=== PATIENT | female | born 1935 | race Caucasian/White ===

== ENCOUNTER 2016-12-23 12:53 | Inpatient (IN) | payer MEDICARE ==
[~2016-12-23 12:53] MED LIST: Sodium Chloride 0.9% 100 ML BAG ONE
[2016-12-23] MEDS ORDERED: Acetaminophen 325 MG TAB ONE (13:08)
--- NOTE | 2016-12-23 13:35 | RAD ---
SINGLE VIEW OF CHEST: Date: 12/23/16 COMPARISON: 08/24/15. HISTORY: Fever. FINDINGS: Single view of the chest shows a normal sized cardiomediastinal silhouette. There is no evidence of consolidation, mass, or pleural effusion. The bones are unremarkable. IMPRESSION: No evidence of acute cardiopulmonary disease. POS: [facility]
[2016-12-23 14:00] LABS: #Basophils 0.1 thou/uL (0.0-0.2); #Lymphocytes 1.8 thou/uL (1.20-3.40); #Neutrophils 13.8 thou/uL (1.40-6.50); %Basophils 0.5 % (0.0-1.0); %Lymphocytes 10.9 % (21.0-51.0); %Monocytes 5.7 % (0.0-10.0); %Neutrophils 82.8 % (42.0-75.0); Hemoglobin 10.3 g/dL (12.0-16.0); Mean Corpuscular HGB CONC 34.5 g/dL (32.0-36.0); Mean Corpuscular Hemoglobin 30.1 pg (27.0-31.0); Mean Corpuscular Volume 87.3 fl (81.0-99.0); Mean Platelet Volume 10.3 fL (7.4-10.4); Platelet Count 269 thou/uL (130-400); RBC Distribution Width 12.7 % (11.5-14.5); Red Blood Cell (RBC) Count 3.43 mill/uL (4.20-5.40); White Blood Cell (WBC) Count 16.6 thou/uL (4.8-10.8)
[2016-12-23 14:00] LABS: Blood, Urine Negative (Negative); Clarity Cloudy (Clear); Glucose, Urine (Dipstick) Negative (Negative); Nitrite Negative (Negative); Protein, Urine (Dipstick) 100 mg/dL (Neg-Trace); Specific Gravity, Urine 1.025 (1.005-1.030); Urobilinogen 0.2 mg/dL (0.2-1.0); pH, Urine 6.5 (5.0-9.0)
[2016-12-23 14:06] LABS: Anion Gap 17 mmol/L (10-20); BUN (Urea Nitrogen) 21 mg/dL (9.8-20.1); Calc. Creatinine Clearance 0 mL/min (70-130); Carbon Dioxide 22 mmol/L (23-31); Chloride 106 mmol/L (98-107); Estimated GFR-MDRD 56; Sodium 141 mmol/L (136-145)
[2016-12-23 14:07] LABS: ALT (SGPT) 11 U/L (8-55); AST (SGOT) 25 U/L (5-34); Albumin 3.5 g/dL (3.4-4.8); Alkaline Phosphatase 30 U/L (40-150); Bilirubin, Total 0.4 mg/dL (0.2-1.2); Calcium 8.9 mg/dL (7.8-10.44); Globulin 2.9 g/dL (2.4-3.5); Glucose 142 mg/dL (83-110); Protein, Total 6.4 g/dL (5.8-8.1)
[2016-12-23 14:09] LABS: CKMB 1.2 ng/mL (0-6.6); Troponin I 0.054 ng/mL (< 0.028)
[2016-12-23 14:11] LABS: Bilirubin Small (Negative); Icto Negative (Negative); Leukocyte Trace (Negative)
[2016-12-23 14:13] LABS: Bacteria/HPF 1+ HPF (None Seen); Crystals/HPF 1+ AMORPH URATES HPF (Negative); RBC/HPF 0-3 HPF (0-3); Renal Epithelial 0-3 HPF (0-3); Squamous Epithelial 0-3 HPF (0-3); Transitional Epithelial 0-3 HPF (0-3)
[2016-12-23] MEDS ORDERED: cefTRIAXone\\ROCEPHIN 1 GM VIAL ONE (14:39)
[2016-12-23] MEDS ORDERED: Ondansetron HCl/PF 4 MG/2 ML Vial SLOW IVP PRN (15:25)
[2016-12-23] MEDS ORDERED: HYDROcodone/Acetaminophen 5/325 mg Tablet PO PRN ×3 (15:25→21:26)
[2016-12-23] MEDS ORDERED: Sodium Chloride 0.9% 1,000 ML IV SCH (15:25)
[2016-12-23] MEDS ORDERED: Acetaminophen 325 MG TAB PO PRN (15:25)
[2016-12-23] MEDS ORDERED: Polyethylene Glycol 3350 17 GM Packet PO PRN (21:26)
[2016-12-23] MEDS ORDERED: Lorazepam 0.5 MG TAB PO SCH (21:45)
[2016-12-23] MEDS ORDERED: Gabapentin 300 MG CAP PO SCH (22:45)
[2016-12-23] MEDS: Amitriptyline HCl 25 MG TAB PO SCH ×3 (23:03→23:05)
[2016-12-24 07:39] LABS: Anion Gap 16 mmol/L (10-20); Calc. Creatinine Clearance 46 mL/min (70-130); Calcium 8.7 mg/dL (7.8-10.44); Carbon Dioxide 20 mmol/L (23-31); Chloride 110 mmol/L (98-107); Estimated GFR-MDRD 70; Glucose 118 mg/dL (83-110); Potassium 3.9 mmol/L (3.5-5.1); Sodium 142 mmol/L (136-145)
[2016-12-24 07:53] LABS: #Lymphocytes 1.8 thou/uL (1.20-3.40); #Monocytes 0.7 thou/uL (0.11-0.59); #Neutrophils 10.1 thou/uL (1.40-6.50); %Basophils 0.4 % (0.0-1.0); %Eosinophils 0.2 % (0.0-10.0); %Monocytes 5.7 % (0.0-10.0); %Neutrophils 79.8 % (42.0-75.0); Hemoglobin 9.8 g/dL (12.0-16.0); Mean Corpuscular HGB CONC 34.1 g/dL (32.0-36.0); Platelet Count 240 thou/uL (130-400); RBC Distribution Width 13.1 % (11.5-14.5); Red Blood Cell (RBC) Count 3.25 mill/uL (4.20-5.40); White Blood Cell (WBC) Count 12.7 thou/uL (4.8-10.8)
[2016-12-24] MEDS: Levothyroxine Sodium 25 MCG TAB PO SCH (08:44)
[2016-12-24] MEDS: Fenofibrate Nanocrystallized 145 MG TAB PO SCH (08:44)
[2016-12-24] MEDS: Clopidogrel Bisulfate 75 MG TAB PO SCH (08:44)
[2016-12-24] MEDS: Calcium Carbonate + Vit D 1 TAB PO SCH (08:44)
[2016-12-24] MEDS: Multivit, Therapeutic 1 TAB PO SCH (08:44)
[2016-12-24] MEDS: Ferrous Sulfate 325 MG TAB PO SCH (08:44)
[2016-12-24] MEDS: Gabapentin 300 MG CAP PO SCH ×3 (08:45→20:30)
[2016-12-24] MEDS: Aspirin 81 mg Enteric Coated Tablet PO SCH (08:45)
[2016-12-24 09:50] LABS: BUN (Urea Nitrogen) 15 mg/dL (9.8-20.1)
--- NOTE | 2016-12-24 14:28 | HP ---
DATE OF ADMISSION: 12/23/2016 ADMITTING PHYSICIAN: Ernst Fernández M.D. PRIMARY CARE PHYSICIAN: Ernst Fernández M.D. CHIEF COMPLAINT: Generalized weakness. HISTORY OF PRESENT ILLNESS: Ms. Mcdowell is an 81-year-old female with a medical history of hypertension, hypothyroidism, and dyslipidemia, chronic anemia, chronic pain syndrome due to low back pain on hydrocodone for this, depression and anxiety. The patient was brought to the emergency room on the by her due to a 2-day history of generalized weakness. The reports she became weak 2 days ago and she just says she has not been feeling good, but unable to describe in what way. Today, the patient reports she had been too weak to even get out of bed and has not eaten or taken any of her medications. Mr. Mcdowell, who is her primary caregiver says she just wants to stay in bed lately, he denies any other symptoms such as fever or URI symptoms. No new motor or sensory deficits. No recent fall, any trauma or injury. No new medications started. No recent travel. In the emergency room upon further examination, the patient was noted to have some pyuria documentation in her urine with no significant leukocytosis. Cardiac enzymes; troponin was intermediate and that was discussed with the patient and her who requested to be admitted to [facility] in [place] for inpatient management of a UTI and further monitoring of cardiac enzymes and possible physical therapy for generalized weakness. PAST MEDICAL HISTORY: Hypertension, osteoporosis, hypothyroidism, depression, history of previous TIA. Previous stroke without residual paralysis, history of left clavicle fracture status post fall, chronic pain syndrome, chronic anemia, osteoarthritis, osteopenia, iron deficiency anemia, chronic mild dry mouth syndrome, small hernia, history of bladder spasm. PAST SURGICAL HISTORY: Hysterectomy in 1994, tonsillectomy 1951, back surgery in 2008, right knee surgery, right foot surgery, colonoscopy [address] Nazario showed sigmoid diverticulosis and hemorrhoids. FAMILY HISTORY: Noncontributory. SOCIAL HISTORY: The patient is a nonsmoker, denies alcohol or illicit drug use. The patient lives with her who is her primary campus receptionist. She is ambulatory using a rolling walker, but has unsteady gait, continent of bladder and bowel. ALLERGIES: No known drug allergies. MEDICATIONS: Fenofibrate 145 daily, [place] 10/32 1-2 half to 1 tab as needed 3 times a day, gabapentin 300 three times a day, ferrous sulfate 325 one tab every day, aspirin 81 mg daily, Plavix 75 daily, Synthroid 25 half tab in the morning, lorazepam 0.5 1/2 tab to 1 tab at bedtime, amitriptyline 25 mg at bedtime, amlodipine 5 daily. REVIEW OF SYSTEMS: GENERAL: Denies fever or chills. Reports generalized weakness, fatigue. No significant weight loss, complains of loss of appetite. HEENT: No acute visual changes or hearing changes. No runny nose, cough or congestion. RESPIRATORY: No chronic cough, sputum production or pain with breathing, no wheezing. CARDIAC: No chest pain, palpitations, dyspnea on exertion. GASTROINTESTINAL: No nausea, no vomiting, abdominal pain or diarrhea. GENITOURINARY: No dysuria or hematuria, no frequency or urgency. MUSCULOSKELETAL: Chronic lower back pain on chronic narcotic use. SKIN: No rashes or lesions. NEUROLOGIC: Complains of generalized weakness. No headaches, seizures, mild tremor was noted. PHYSICAL EXAMINATION: VITAL SIGNS: Temperature 98.3, pulse 89, respirations 22, O2 sat 94% on room air, blood pressure 136/62. GENERAL APPEARANCE: The patient is alert, awake, oriented x3, in no distress. She is sitting comfortably in bed eating her breakfast, generally weak looking. HEENT: Normocephalic, atraumatic. Mucous membranes are intact, moist. Extraocular movements are intact. Pupils are equal, round and reactive to light. NECK: Supple, no JVD, no LAD, no bruit, no thyromegaly. CARDIOVASCULAR: S1, S2, normal rate and rhythm. LUNGS: Respirations clear to auscultation bilaterally. ABDOMEN: Flat, soft, positive bowel sounds, nontender, nondistended, no rebound , no guarding, no CVA tenderness. EXTREMITIES: No calf edema or erythema. SKIN: Dry, warm, no rashes or lesions, no jaundice. PSYCHIATRIC : Conversational, appropriate interaction, good eye contact. NEUROLOGIC: No focal deficits, spontaneous speech, unsteady gait. LABORATORY: WBC 16.6, hemoglobin 10.3, hematocrit 30.0, platelets 269. Sodium 141, potassium 4.0, chloride 106, carbon dioxide 22, BUN 21, creatinine 0.96, glucose is 142. Troponin 0.054. CK 1.2, alkaline phosphatase 30. ASSESSMENT: 1. Generalized weakness. 2. Urinary tract infection. 3. Deconditioning. 4. Chronic pain syndrome. 5. Unsteady gait. 6. Chronic anemia. 7. History of cerebrovascular accidents. 8. Dyslipidemia. 9. Hypothyroidism. 10. Depression with anxiety. PLAN: The patient will be admitted to the Med/Surg for inpatient management of her urinary tract infection. We will continue empiric IV antibiotic treatment with Levaquin as initiated from the ER pending cultures. We will continue volume hydration until oral intake is stabilized. We will continue home medications as modified. We will get PT, OT for evaluation and treatment of her gait strengthening and training. We will place the patient on DVT prophylaxis is with compression stockings and GI prophylaxis is with Protonix. CODE STATUS: The patient is a DNR, confirmed by spouse. DISPOSITION: Home versus placement per spouse. MTDD
[2016-12-24] MEDS: Lorazepam 0.5 MG TAB PO SCH (20:30)
[2016-12-24] MEDS: Amitriptyline HCl 25 MG TAB PO SCH (20:30)
[2016-12-24 22:14] VITALS: BMI 20.9
[2016-12-25] MEDS: Levothyroxine Sodium 25 MCG TAB PO SCH (05:47)
[2016-12-25] MEDS: Clopidogrel Bisulfate 75 MG TAB PO SCH (08:11)
[2016-12-25] MEDS: Fenofibrate Nanocrystallized 145 MG TAB PO SCH (08:11)
[2016-12-25] MEDS: Gabapentin 300 MG CAP PO SCH ×3 (08:11→20:27)
[2016-12-25] MEDS: Multivit, Therapeutic 1 TAB PO SCH (08:11)
[2016-12-25] MEDS: Calcium Carbonate + Vit D 1 TAB PO SCH (08:11)
[2016-12-25] MEDS: Ferrous Sulfate 325 MG TAB PO SCH (08:11)
[2016-12-25] MEDS: Aspirin 81 mg Enteric Coated Tablet PO SCH (08:11)
[2016-12-25] MEDS: Amitriptyline HCl 25 MG TAB PO SCH (20:27)
[2016-12-25] MEDS: Lorazepam 0.5 MG TAB PO SCH (20:28)
[2016-12-26 05:18] LABS: #Basophils 0.1 thou/uL (0.0-0.2); #Eosinphils 0.3 thou/uL (0.0-0.7); #Lymphocytes 2.7 thou/uL (1.20-3.40); #Monocytes 0.8 thou/uL (0.11-0.59); %Basophils 0.9 % (0.0-1.0); %Eosinophils 4.3 % (0.0-10.0); %Lymphocytes 39.1 % (21.0-51.0); %Monocytes 11.6 % (0.0-10.0); %Neutrophils 44.1 % (42.0-75.0); Hemoglobin 9.5 g/dL (12.0-16.0); Mean Corpuscular HGB CONC 33.4 g/dL (32.0-36.0); Mean Corpuscular Hemoglobin 29.5 pg (27.0-31.0); Mean Corpuscular Volume 88.3 fl (81.0-99.0); Mean Platelet Volume 9.9 fL (7.4-10.4); Platelet Count 263 thou/uL (130-400); RBC Distribution Width 12.8 % (11.5-14.5); Red Blood Cell (RBC) Count 3.23 mill/uL (4.20-5.40); White Blood Cell (WBC) Count 6.9 thou/uL (4.8-10.8)
[2016-12-26 05:20] LABS: Anion Gap 14 mmol/L (10-20); BUN (Urea Nitrogen) 14 mg/dL (9.8-20.1); Calc. Creatinine Clearance 44 mL/min (70-130); Calcium 8.5 mg/dL (7.8-10.44); Carbon Dioxide 23 mmol/L (23-31); Chloride 104 mmol/L (98-107); Estimated GFR-MDRD 69; Glucose 96 mg/dL (83-110); Potassium 4.3 mmol/L (3.5-5.1); Sodium 137 mmol/L (136-145)
[2016-12-26] MEDS: Levothyroxine Sodium 25 MCG TAB PO SCH (05:49)
[2016-12-26] MEDS: Aspirin 81 mg Enteric Coated Tablet PO SCH (08:48)
[2016-12-26] MEDS: Clopidogrel Bisulfate 75 MG TAB PO SCH (08:48)
[2016-12-26] MEDS: Calcium Carbonate + Vit D 1 TAB PO SCH (08:48)
[2016-12-26] MEDS: Multivit, Therapeutic 1 TAB PO SCH (08:49)
[2016-12-26] MEDS: Fenofibrate Nanocrystallized 145 MG TAB PO SCH (08:49)
[2016-12-26] MEDS: Gabapentin 300 MG CAP PO SCH ×3 (08:49→20:22)
[2016-12-26] MEDS: Ferrous Sulfate 325 MG TAB PO SCH (08:49)
[2016-12-26] MEDS: Amitriptyline HCl 25 MG TAB PO SCH (20:23)
[2016-12-26] MEDS: Lorazepam 0.5 MG TAB PO SCH (20:23)
[2016-12-27] MEDS: Levothyroxine Sodium 25 MCG TAB PO SCH (05:44)
[2016-12-27 07:51] VITALS: BP 152/67; TEMP 97.8
[2016-12-27] MEDS: Fenofibrate Nanocrystallized 145 MG TAB PO SCH (08:56)
[2016-12-27] MEDS: Aspirin 81 mg Enteric Coated Tablet PO SCH (08:56)
[2016-12-27] MEDS: Clopidogrel Bisulfate 75 MG TAB PO SCH (08:57)
[2016-12-27] MEDS: Multivit, Therapeutic 1 TAB PO SCH (08:57)
[2016-12-27] MEDS: Calcium Carbonate + Vit D 1 TAB PO SCH (08:57)
[2016-12-27] MEDS: Gabapentin 300 MG CAP PO SCH (08:57)
[2016-12-27] MEDS: Ferrous Sulfate 325 MG TAB PO SCH (08:57)
== END 2016-12-27 09:24 | disposition swing bed (61) | DRG 948 ==
LOC: MADERS 12:53 → MADMS 14:30
PROVIDERS: ADMIT Family Medicine; ATTEND Family Medicine
DX: R53.1 Weakness (principal); N39.0 Urinary tract infection, site not specified; D64.9 Anemia, unspecified; I10 Essential (primary) hypertension; G89.4 Chronic pain syndrome; R26.81 Unsteadiness on feet; Z86.73 Personal history of transient ischemic attack (TIA), and cerebral infarction without residual deficits; E78.5 Hyperlipidemia, unspecified; E03.9 Hypothyroidism, unspecified; F41.8 Other specified anxiety disorders; Z66 Do not resuscitate; M19.90 Unspecified osteoarthritis, unspecified site; M81.0 Age-related osteoporosis without current pathological fracture
CPT/HCPCS: 36415; 51702; 71010; 80048; 80053; 81003; 81015; 82553; 84484; 85025; 87040; 93005; 96361; 96374; A4216; A4353; G8978-GP-CK; G8979-GP-CI; J0696; J1956; J7050

== ENCOUNTER 2016-12-26 10:47 | Inpatient (IN) | payer MEDICARE ==
[2016-12-27] MEDS ORDERED: Ondansetron ODT 4 MG TAB PO PRN (12:33)
[2016-12-27] MEDS ORDERED: HYDROcodone/Acetaminophen 5/325 mg Tablet PO PRN (12:34)
[2016-12-27] MEDS: Gabapentin 300 MG CAP PO SCH ×2 (15:20→20:00)
[2016-12-27] MEDS: Amitriptyline HCl 25 MG TAB PO SCH (20:00)
[2016-12-27] MEDS: Lorazepam 0.5 MG TAB PO SCH (20:00)
[2016-12-28] MEDS: Levothyroxine Sodium 25 MCG TAB PO SCH (05:56)
[2016-12-28] MEDS: Fenofibrate Nanocrystallized 145 MG TAB PO SCH (10:01)
[2016-12-28] MEDS: Multivit, Therapeutic 1 TAB PO SCH (10:01)
[2016-12-28] MEDS: Clopidogrel Bisulfate 75 MG TAB PO SCH (10:01)
[2016-12-28] MEDS: Aspirin 81 mg Enteric Coated Tablet PO SCH (10:01)
[2016-12-28] MEDS: Calcium Carbonate + Vit D 1 TAB PO SCH (10:02)
[2016-12-28] MEDS: Ferrous Sulfate 325 MG TAB PO SCH (10:02)
[2016-12-28] MEDS: Gabapentin 300 MG CAP PO SCH ×3 (10:02→20:37)
[2016-12-28] MEDS: Polyethylene Glycol 3350 17 GM Packet PO PRN (19:26)
[2016-12-28] MEDS: Lorazepam 0.5 MG TAB PO SCH (20:37)
[2016-12-28] MEDS: Amitriptyline HCl 25 MG TAB PO SCH (20:37)
[2016-12-29] MEDS: Levothyroxine Sodium 25 MCG TAB PO SCH (05:42)
[2016-12-29] MEDS: Fenofibrate Nanocrystallized 145 MG TAB PO SCH (08:17)
[2016-12-29] MEDS: Multivit, Therapeutic 1 TAB PO SCH (08:17)
[2016-12-29] MEDS: Clopidogrel Bisulfate 75 MG TAB PO SCH (08:18)
[2016-12-29] MEDS: Gabapentin 300 MG CAP PO SCH ×3 (08:18→21:03)
[2016-12-29] MEDS: Calcium Carbonate + Vit D 1 TAB PO SCH (08:18)
[2016-12-29] MEDS: Aspirin 81 mg Enteric Coated Tablet PO SCH (08:18)
[2016-12-29] MEDS: Ferrous Sulfate 325 MG TAB PO SCH (08:18)
[2016-12-29] MEDS: Amitriptyline HCl 25 MG TAB PO SCH (21:03)
[2016-12-29] MEDS: Lorazepam 0.5 MG TAB PO SCH (21:03)
[2016-12-30] MEDS: Levothyroxine Sodium 25 MCG TAB PO SCH (05:45)
[2016-12-30] MEDS: Multivit, Therapeutic 1 TAB PO SCH (08:35)
[2016-12-30] MEDS: Aspirin 81 mg Enteric Coated Tablet PO SCH (08:36)
[2016-12-30] MEDS: Calcium Carbonate + Vit D 1 TAB PO SCH (08:36)
[2016-12-30] MEDS: Fenofibrate Nanocrystallized 145 MG TAB PO SCH (08:36)
[2016-12-30] MEDS: Ferrous Sulfate 325 MG TAB PO SCH (08:36)
[2016-12-30] MEDS: Clopidogrel Bisulfate 75 MG TAB PO SCH (08:36)
[2016-12-30] MEDS: Gabapentin 300 MG CAP PO SCH ×3 (08:37→20:20)
[2016-12-30] MEDS: Lorazepam 0.5 MG TAB PO SCH (20:20)
[2016-12-30] MEDS: Amitriptyline HCl 25 MG TAB PO SCH (20:20)
[2016-12-31] MEDS: Levothyroxine Sodium 25 MCG TAB PO SCH (05:17)
[2016-12-31] MEDS: Multivit, Therapeutic 1 TAB PO SCH (08:21)
[2016-12-31] MEDS: Aspirin 81 mg Enteric Coated Tablet PO SCH (08:21)
[2016-12-31] MEDS: Fenofibrate Nanocrystallized 145 MG TAB PO SCH (08:21)
[2016-12-31] MEDS: Calcium Carbonate + Vit D 1 TAB PO SCH (08:21)
[2016-12-31] MEDS: Clopidogrel Bisulfate 75 MG TAB PO SCH (08:21)
[2016-12-31] MEDS: Gabapentin 300 MG CAP PO SCH ×3 (08:22→20:46)
[2016-12-31] MEDS: Ferrous Sulfate 325 MG TAB PO SCH (08:22)
[2016-12-31] MEDS: Amitriptyline HCl 25 MG TAB PO SCH (20:46)
[2016-12-31] MEDS: Lorazepam 0.5 MG TAB PO SCH (20:46)
[2017-01-01] MEDS: Levothyroxine Sodium 25 MCG TAB PO SCH (05:45)
[2017-01-01] MEDS: Fenofibrate Nanocrystallized 145 MG TAB PO SCH (09:15)
[2017-01-01] MEDS: Clopidogrel Bisulfate 75 MG TAB PO SCH (09:15)
[2017-01-01] MEDS: Gabapentin 300 MG CAP PO SCH ×3 (09:15→20:23)
[2017-01-01] MEDS: Ferrous Sulfate 325 MG TAB PO SCH (09:16)
[2017-01-01] MEDS: Multivit, Therapeutic 1 TAB PO SCH (09:16)
[2017-01-01] MEDS: Aspirin 81 mg Enteric Coated Tablet PO SCH (09:16)
[2017-01-01] MEDS: Calcium Carbonate + Vit D 1 TAB PO SCH (09:16)
[2017-01-01] MEDS: Polyethylene Glycol 3350 17 GM Packet PO PRN (16:22)
[2017-01-01] MEDS: Lorazepam 0.5 MG TAB PO SCH (20:23)
[2017-01-01] MEDS: Amitriptyline HCl 25 MG TAB PO SCH (20:23)
[2017-01-02] MEDS: Levothyroxine Sodium 25 MCG TAB PO SCH (05:19)
[2017-01-02] MEDS: Gabapentin 300 MG CAP PO SCH ×3 (08:35→21:04)
[2017-01-02] MEDS: Clopidogrel Bisulfate 75 MG TAB PO SCH (08:35)
[2017-01-02] MEDS: Aspirin 81 mg Enteric Coated Tablet PO SCH (08:36)
[2017-01-02] MEDS: Multivit, Therapeutic 1 TAB PO SCH (08:36)
[2017-01-02] MEDS: Fenofibrate Nanocrystallized 145 MG TAB PO SCH (08:36)
[2017-01-02] MEDS: Ferrous Sulfate 325 MG TAB PO SCH (08:36)
[2017-01-02] MEDS: Calcium Carbonate + Vit D 1 TAB PO SCH (08:36)
[2017-01-02] MEDS: Amitriptyline HCl 25 MG TAB PO SCH (21:04)
[2017-01-02] MEDS: Lorazepam 0.5 MG TAB PO SCH (21:04)
[2017-01-03] MEDS: Levothyroxine Sodium 25 MCG TAB PO SCH (06:06)
[2017-01-03] MEDS: Multivit, Therapeutic 1 TAB PO SCH (08:42)
[2017-01-03] MEDS: Aspirin 81 mg Enteric Coated Tablet PO SCH (08:42)
[2017-01-03] MEDS: Ferrous Sulfate 325 MG TAB PO SCH (08:44)
[2017-01-03] MEDS: Fenofibrate Nanocrystallized 145 MG TAB PO SCH (08:44)
[2017-01-03] MEDS: Gabapentin 300 MG CAP PO SCH ×3 (08:44→21:19)
[2017-01-03] MEDS: Calcium Carbonate + Vit D 1 TAB PO SCH (08:44)
[2017-01-03] MEDS: Clopidogrel Bisulfate 75 MG TAB PO SCH (08:44)
[2017-01-03] MEDS: Lorazepam 0.5 MG TAB PO SCH (21:19)
[2017-01-03] MEDS: Amitriptyline HCl 25 MG TAB PO SCH (21:19)
[2017-01-04] MEDS: Levothyroxine Sodium 25 MCG TAB PO SCH (05:24)
[2017-01-04] MEDS: Fenofibrate Nanocrystallized 145 MG TAB PO SCH (08:59)
[2017-01-04] MEDS: Gabapentin 300 MG CAP PO SCH ×3 (08:59→20:45)
[2017-01-04] MEDS: Calcium Carbonate + Vit D 1 TAB PO SCH (08:59)
[2017-01-04] MEDS: Multivit, Therapeutic 1 TAB PO SCH (08:59)
[2017-01-04] MEDS: Aspirin 81 mg Enteric Coated Tablet PO SCH (08:59)
[2017-01-04] MEDS: Ferrous Sulfate 325 MG TAB PO SCH (08:59)
[2017-01-04] MEDS: Clopidogrel Bisulfate 75 MG TAB PO SCH (09:00)
[2017-01-04] MEDS: Lorazepam 0.5 MG TAB PO SCH (20:45)
[2017-01-04] MEDS: Amitriptyline HCl 25 MG TAB PO SCH (21:53)
[2017-01-05] MEDS: Levothyroxine Sodium 25 MCG TAB PO SCH (05:30)
[2017-01-05] MEDS: Calcium Carbonate + Vit D 1 TAB PO SCH (08:27)
[2017-01-05] MEDS: Aspirin 81 mg Enteric Coated Tablet PO SCH (08:27)
[2017-01-05] MEDS: Fenofibrate Nanocrystallized 145 MG TAB PO SCH (08:28)
[2017-01-05] MEDS: Ferrous Sulfate 325 MG TAB PO SCH (08:28)
[2017-01-05] MEDS: Clopidogrel Bisulfate 75 MG TAB PO SCH (08:28)
[2017-01-05] MEDS: Multivit, Therapeutic 1 TAB PO SCH (08:29)
[2017-01-05] MEDS: Gabapentin 300 MG CAP PO SCH ×3 (08:29→20:36)
[2017-01-05] MEDS: Amitriptyline HCl 25 MG TAB PO SCH (20:36)
[2017-01-05] MEDS: Lorazepam 0.5 MG TAB PO SCH (20:36)
[2017-01-06] MEDS: Levothyroxine Sodium 25 MCG TAB PO SCH (06:33)
[2017-01-06] MEDS: Clopidogrel Bisulfate 75 MG TAB PO SCH (08:32)
[2017-01-06] MEDS: Aspirin 81 mg Enteric Coated Tablet PO SCH (08:32)
[2017-01-06] MEDS: Ferrous Sulfate 325 MG TAB PO SCH (08:32)
[2017-01-06] MEDS: Calcium Carbonate + Vit D 1 TAB PO SCH (08:32)
[2017-01-06] MEDS: Gabapentin 300 MG CAP PO SCH ×3 (08:32→20:48)
[2017-01-06] MEDS: Fenofibrate Nanocrystallized 145 MG TAB PO SCH (08:33)
[2017-01-06] MEDS: Multivit, Therapeutic 1 TAB PO SCH (08:33)
[2017-01-06] MEDS: Amitriptyline HCl 25 MG TAB PO SCH (20:48)
[2017-01-06] MEDS: Lorazepam 0.5 MG TAB PO SCH (20:49)
[2017-01-07] MEDS: Levothyroxine Sodium 25 MCG TAB PO SCH (06:21)
[2017-01-07] MEDS: Multivit, Therapeutic 1 TAB PO SCH (08:37)
[2017-01-07] MEDS: Gabapentin 300 MG CAP PO SCH ×3 (08:37→21:08)
[2017-01-07] MEDS: Aspirin 81 mg Enteric Coated Tablet PO SCH (08:37)
[2017-01-07] MEDS: Calcium Carbonate + Vit D 1 TAB PO SCH (08:37)
[2017-01-07] MEDS: Clopidogrel Bisulfate 75 MG TAB PO SCH (08:37)
[2017-01-07] MEDS: Ferrous Sulfate 325 MG TAB PO SCH (08:37)
[2017-01-07] MEDS: Fenofibrate Nanocrystallized 145 MG TAB PO SCH (08:37)
[2017-01-07] MEDS: Lorazepam 0.5 MG TAB PO SCH (21:08)
[2017-01-07] MEDS: Amitriptyline HCl 25 MG TAB PO SCH (21:08)
[2017-01-08] MEDS: Levothyroxine Sodium 25 MCG TAB PO SCH (05:47)
[2017-01-08] MEDS: Fenofibrate Nanocrystallized 145 MG TAB PO SCH (08:40)
[2017-01-08] MEDS: Gabapentin 300 MG CAP PO SCH ×3 (08:40→20:24)
[2017-01-08] MEDS: Clopidogrel Bisulfate 75 MG TAB PO SCH (08:40)
[2017-01-08] MEDS: Calcium Carbonate + Vit D 1 TAB PO SCH (08:41)
[2017-01-08] MEDS: Ferrous Sulfate 325 MG TAB PO SCH (08:41)
[2017-01-08] MEDS: Aspirin 81 mg Enteric Coated Tablet PO SCH (08:41)
[2017-01-08] MEDS: Multivit, Therapeutic 1 TAB PO SCH (08:41)
[2017-01-08] MEDS: Amitriptyline HCl 25 MG TAB PO SCH (20:24)
[2017-01-08] MEDS: Lorazepam 0.5 MG TAB PO SCH (20:25)
[2017-01-09] MEDS: Levothyroxine Sodium 25 MCG TAB PO SCH (05:27)
[2017-01-09] MEDS: Aspirin 81 mg Enteric Coated Tablet PO SCH (08:43)
[2017-01-09] MEDS: Multivit, Therapeutic 1 TAB PO SCH (08:44)
[2017-01-09] MEDS: Ferrous Sulfate 325 MG TAB PO SCH (08:44)
[2017-01-09] MEDS: Gabapentin 300 MG CAP PO SCH ×3 (08:44→21:57)
[2017-01-09] MEDS: Clopidogrel Bisulfate 75 MG TAB PO SCH (08:44)
[2017-01-09] MEDS: Calcium Carbonate + Vit D 1 TAB PO SCH (08:44)
[2017-01-09] MEDS: Fenofibrate Nanocrystallized 145 MG TAB PO SCH (08:44)
[2017-01-09] MEDS: Amitriptyline HCl 25 MG TAB PO SCH (21:56)
[2017-01-09] MEDS: Lorazepam 0.5 MG TAB PO SCH (22:19)
[2017-01-10] MEDS: Levothyroxine Sodium 25 MCG TAB PO SCH (05:49)
[2017-01-10] MEDS: Fenofibrate Nanocrystallized 145 MG TAB PO SCH (08:19)
[2017-01-10] MEDS: Clopidogrel Bisulfate 75 MG TAB PO SCH (08:19)
[2017-01-10] MEDS: Multivit, Therapeutic 1 TAB PO SCH (08:19)
[2017-01-10] MEDS: Aspirin 81 mg Enteric Coated Tablet PO SCH (08:19)
[2017-01-10] MEDS: Gabapentin 300 MG CAP PO SCH ×3 (08:19→20:23)
[2017-01-10] MEDS: Ferrous Sulfate 325 MG TAB PO SCH (08:20)
[2017-01-10] MEDS: Calcium Carbonate + Vit D 1 TAB PO SCH (08:21)
[2017-01-10] MEDS: Lorazepam 0.5 MG TAB PO SCH (20:23)
[2017-01-10] MEDS: Amitriptyline HCl 25 MG TAB PO SCH (20:23)
[2017-01-11] MEDS: Levothyroxine Sodium 25 MCG TAB PO SCH (05:44)
[2017-01-11] MEDS: Aspirin 81 mg Enteric Coated Tablet PO SCH (08:48)
[2017-01-11] MEDS: Fenofibrate Nanocrystallized 145 MG TAB PO SCH (08:49)
[2017-01-11] MEDS: Calcium Carbonate + Vit D 1 TAB PO SCH (08:49)
[2017-01-11] MEDS: Gabapentin 300 MG CAP PO SCH ×3 (08:49→20:39)
[2017-01-11] MEDS: Clopidogrel Bisulfate 75 MG TAB PO SCH (08:49)
[2017-01-11] MEDS: Multivit, Therapeutic 1 TAB PO SCH (08:49)
[2017-01-11] MEDS: Ferrous Sulfate 325 MG TAB PO SCH (08:50)
[2017-01-11] MEDS: Amitriptyline HCl 25 MG TAB PO SCH (20:39)
[2017-01-11] MEDS: Lorazepam 0.5 MG TAB PO SCH (20:39)
[2017-01-12] MEDS: Levothyroxine Sodium 25 MCG TAB PO SCH (05:54)
[2017-01-12] MEDS: Fenofibrate Nanocrystallized 145 MG TAB PO SCH (08:14)
[2017-01-12] MEDS: Multivit, Therapeutic 1 TAB PO SCH (08:14)
[2017-01-12] MEDS: Aspirin 81 mg Enteric Coated Tablet PO SCH (08:14)
[2017-01-12] MEDS: Clopidogrel Bisulfate 75 MG TAB PO SCH (08:14)
[2017-01-12] MEDS: Ferrous Sulfate 325 MG TAB PO SCH (08:14)
[2017-01-12] MEDS: Calcium Carbonate + Vit D 1 TAB PO SCH (08:14)
[2017-01-12] MEDS: Gabapentin 300 MG CAP PO SCH ×3 (08:14→21:02)
[2017-01-12] MEDS: Amitriptyline HCl 25 MG TAB PO SCH (21:02)
[2017-01-12] MEDS: Lorazepam 0.5 MG TAB PO SCH (21:03)
[2017-01-13] MEDS: Levothyroxine Sodium 25 MCG TAB PO SCH (05:50)
[2017-01-13] MEDS: Ferrous Sulfate 325 MG TAB PO SCH (08:54)
[2017-01-13] MEDS: Multivit, Therapeutic 1 TAB PO SCH (08:54)
[2017-01-13] MEDS: Clopidogrel Bisulfate 75 MG TAB PO SCH (08:54)
[2017-01-13] MEDS: Fenofibrate Nanocrystallized 145 MG TAB PO SCH (08:54)
[2017-01-13] MEDS: Aspirin 81 mg Enteric Coated Tablet PO SCH (08:55)
[2017-01-13] MEDS: Calcium Carbonate + Vit D 1 TAB PO SCH (08:55)
[2017-01-13] MEDS: Gabapentin 300 MG CAP PO SCH ×3 (08:55→20:21)
[2017-01-13] MEDS: Amitriptyline HCl 25 MG TAB PO SCH (20:21)
[2017-01-13] MEDS: Lorazepam 0.5 MG TAB PO SCH (20:21)
[2017-01-14] MEDS: Levothyroxine Sodium 25 MCG TAB PO SCH (05:37)
[2017-01-14] MEDS: Multivit, Therapeutic 1 TAB PO SCH (09:10)
[2017-01-14] MEDS: Polyethylene Glycol 3350 17 GM Packet PO PRN (09:10)
[2017-01-14] MEDS: Fenofibrate Nanocrystallized 145 MG TAB PO SCH (09:10)
[2017-01-14] MEDS: Aspirin 81 mg Enteric Coated Tablet PO SCH (09:11)
[2017-01-14] MEDS: Calcium Carbonate + Vit D 1 TAB PO SCH (09:11)
[2017-01-14] MEDS: Gabapentin 300 MG CAP PO SCH ×3 (09:11→20:25)
[2017-01-14] MEDS: Clopidogrel Bisulfate 75 MG TAB PO SCH (09:11)
[2017-01-14] MEDS: Ferrous Sulfate 325 MG TAB PO SCH (09:12)
[2017-01-14] MEDS: Lorazepam 0.5 MG TAB PO SCH (20:25)
[2017-01-14] MEDS: Amitriptyline HCl 25 MG TAB PO SCH (20:25)
[2017-01-15] MEDS: Levothyroxine Sodium 25 MCG TAB PO SCH (05:25)
[2017-01-15] MEDS: Ferrous Sulfate 325 MG TAB PO SCH (09:14)
[2017-01-15] MEDS: Calcium Carbonate + Vit D 1 TAB PO SCH (09:14)
[2017-01-15] MEDS: Fenofibrate Nanocrystallized 145 MG TAB PO SCH (09:14)
[2017-01-15] MEDS: Aspirin 81 mg Enteric Coated Tablet PO SCH (09:14)
[2017-01-15] MEDS: Clopidogrel Bisulfate 75 MG TAB PO SCH (09:14)
[2017-01-15] MEDS: Gabapentin 300 MG CAP PO SCH ×3 (09:14→20:28)
[2017-01-15] MEDS: Multivit, Therapeutic 1 TAB PO SCH (09:14)
[2017-01-15] MEDS: Lorazepam 0.5 MG TAB PO SCH (20:28)
[2017-01-15] MEDS: Amitriptyline HCl 25 MG TAB PO SCH (20:28)
[2017-01-16] MEDS: Levothyroxine Sodium 25 MCG TAB PO SCH (05:29)
[2017-01-16] MEDS: Calcium Carbonate + Vit D 1 TAB PO SCH (09:03)
[2017-01-16] MEDS: Fenofibrate Nanocrystallized 145 MG TAB PO SCH (09:03)
[2017-01-16] MEDS: Clopidogrel Bisulfate 75 MG TAB PO SCH (09:03)
[2017-01-16] MEDS: Gabapentin 300 MG CAP PO SCH ×3 (09:03→21:06)
[2017-01-16] MEDS: Multivit, Therapeutic 1 TAB PO SCH (09:03)
[2017-01-16] MEDS: Ferrous Sulfate 325 MG TAB PO SCH (09:03)
[2017-01-16] MEDS: Aspirin 81 mg Enteric Coated Tablet PO SCH (09:03)
[2017-01-16] MEDS: Amitriptyline HCl 25 MG TAB PO SCH (21:06)
[2017-01-16] MEDS: Lorazepam 0.5 MG TAB PO SCH (21:06)
[2017-01-17] MEDS: Levothyroxine Sodium 25 MCG TAB PO SCH (05:38)
[2017-01-17] MEDS: Fenofibrate Nanocrystallized 145 MG TAB PO SCH (09:33)
[2017-01-17] MEDS: Ferrous Sulfate 325 MG TAB PO SCH (09:33)
[2017-01-17] MEDS: Aspirin 81 mg Enteric Coated Tablet PO SCH (09:33)
[2017-01-17] MEDS: Gabapentin 300 MG CAP PO SCH ×3 (09:34→21:44)
[2017-01-17] MEDS: Multivit, Therapeutic 1 TAB PO SCH (09:34)
[2017-01-17] MEDS: Clopidogrel Bisulfate 75 MG TAB PO SCH (09:34)
[2017-01-17] MEDS: Calcium Carbonate + Vit D 1 TAB PO SCH (09:34)
[2017-01-17] MEDS: Lorazepam 0.5 MG TAB PO SCH (21:40)
[2017-01-17] MEDS: Amitriptyline HCl 25 MG TAB PO SCH (21:44)
[2017-01-18] MEDS: Levothyroxine Sodium 25 MCG TAB PO SCH (06:02)
[2017-01-18] MEDS: Aspirin 81 mg Enteric Coated Tablet PO SCH (09:44)
[2017-01-18] MEDS: Multivit, Therapeutic 1 TAB PO SCH (09:44)
[2017-01-18] MEDS: Fenofibrate Nanocrystallized 145 MG TAB PO SCH (09:44)
[2017-01-18] MEDS: Calcium Carbonate + Vit D 1 TAB PO SCH (09:44)
[2017-01-18] MEDS: Clopidogrel Bisulfate 75 MG TAB PO SCH (09:44)
[2017-01-18] MEDS: Gabapentin 300 MG CAP PO SCH ×3 (09:44→21:26)
[2017-01-18] MEDS: Ferrous Sulfate 325 MG TAB PO SCH (09:45)
[2017-01-18] MEDS: Lorazepam 0.5 MG TAB PO SCH (21:26)
[2017-01-18] MEDS: Amitriptyline HCl 25 MG TAB PO SCH (21:26)
[2017-01-19] MEDS: Levothyroxine Sodium 25 MCG TAB PO SCH (06:30)
[2017-01-19] MEDS: Polyethylene Glycol 3350 17 GM Packet PO PRN (06:32)
[2017-01-19] MEDS: Calcium Carbonate + Vit D 1 TAB PO SCH (09:25)
[2017-01-19] MEDS: Multivit, Therapeutic 1 TAB PO SCH (09:25)
[2017-01-19] MEDS: Gabapentin 300 MG CAP PO SCH ×3 (09:25→21:11)
[2017-01-19] MEDS: Ferrous Sulfate 325 MG TAB PO SCH (09:25)
[2017-01-19] MEDS: Fenofibrate Nanocrystallized 145 MG TAB PO SCH (09:25)
[2017-01-19] MEDS: Clopidogrel Bisulfate 75 MG TAB PO SCH (09:25)
[2017-01-19] MEDS: Aspirin 81 mg Enteric Coated Tablet PO SCH (09:26)
[2017-01-19] MEDS: Amitriptyline HCl 25 MG TAB PO SCH (21:10)
[2017-01-19] MEDS: Lorazepam 0.5 MG TAB PO SCH (21:10)
[2017-01-20] MEDS: Levothyroxine Sodium 25 MCG TAB PO SCH (06:13)
[2017-01-20] MEDS: Gabapentin 300 MG CAP PO SCH ×3 (08:43→21:03)
[2017-01-20] MEDS: Calcium Carbonate + Vit D 1 TAB PO SCH (08:43)
[2017-01-20] MEDS: Clopidogrel Bisulfate 75 MG TAB PO SCH (08:43)
[2017-01-20] MEDS: Fenofibrate Nanocrystallized 145 MG TAB PO SCH (08:43)
[2017-01-20] MEDS: Aspirin 81 mg Enteric Coated Tablet PO SCH (08:43)
[2017-01-20] MEDS: Ferrous Sulfate 325 MG TAB PO SCH (08:43)
[2017-01-20] MEDS: Multivit, Therapeutic 1 TAB PO SCH (08:43)
[2017-01-20] MEDS: Lorazepam 0.5 MG TAB PO SCH (21:03)
[2017-01-20] MEDS: Amitriptyline HCl 25 MG TAB PO SCH (21:05)
[2017-01-21] MEDS: Levothyroxine Sodium 25 MCG TAB PO SCH (05:25)
[2017-01-21] MEDS: Polyethylene Glycol 3350 17 GM Packet PO PRN (05:26)
[2017-01-21] MEDS: Aspirin 81 mg Enteric Coated Tablet PO SCH (08:36)
[2017-01-21] MEDS: Gabapentin 300 MG CAP PO SCH ×3 (08:37→20:06)
[2017-01-21] MEDS: Calcium Carbonate + Vit D 1 TAB PO SCH (08:37)
[2017-01-21] MEDS: Fenofibrate Nanocrystallized 145 MG TAB PO SCH (08:37)
[2017-01-21] MEDS: Clopidogrel Bisulfate 75 MG TAB PO SCH (08:37)
[2017-01-21] MEDS: Multivit, Therapeutic 1 TAB PO SCH (08:37)
[2017-01-21] MEDS: Ferrous Sulfate 325 MG TAB PO SCH (08:37)
[2017-01-21] MEDS: Amitriptyline HCl 25 MG TAB PO SCH (20:06)
[2017-01-21] MEDS: Lorazepam 0.5 MG TAB PO SCH (20:06)
[2017-01-22 00:03] VITALS: BMI 22.1
[2017-01-22] MEDS: Levothyroxine Sodium 25 MCG TAB PO SCH (05:36)
[2017-01-22] MEDS: Clopidogrel Bisulfate 75 MG TAB PO SCH (08:40)
[2017-01-22] MEDS: Ferrous Sulfate 325 MG TAB PO SCH (08:40)
[2017-01-22] MEDS: Fenofibrate Nanocrystallized 145 MG TAB PO SCH (08:40)
[2017-01-22] MEDS: Aspirin 81 mg Enteric Coated Tablet PO SCH (08:40)
[2017-01-22] MEDS: Multivit, Therapeutic 1 TAB PO SCH (08:40)
[2017-01-22] MEDS: Gabapentin 300 MG CAP PO SCH ×3 (08:40→20:53)
[2017-01-22] MEDS: Lorazepam 0.5 MG TAB PO SCH (20:52)
[2017-01-22] MEDS: Calcium Carbonate + Vit D 1 TAB PO SCH (20:53)
[2017-01-22] MEDS: Amitriptyline HCl 25 MG TAB PO SCH (20:53)
[2017-01-23] MEDS: Levothyroxine Sodium 25 MCG TAB PO SCH (05:36)
[2017-01-23] MEDS: Ferrous Sulfate 325 MG TAB PO SCH (08:37)
[2017-01-23] MEDS: Clopidogrel Bisulfate 75 MG TAB PO SCH (08:37)
[2017-01-23] MEDS: Fenofibrate Nanocrystallized 145 MG TAB PO SCH (08:37)
[2017-01-23] MEDS: Gabapentin 300 MG CAP PO SCH ×3 (08:37→20:18)
[2017-01-23] MEDS: Aspirin 81 mg Enteric Coated Tablet PO SCH (08:37)
[2017-01-23] MEDS: Multivit, Therapeutic 1 TAB PO SCH (08:37)
[2017-01-23] MEDS: Lorazepam 0.5 MG TAB PO SCH (20:18)
[2017-01-23] MEDS: Calcium Carbonate + Vit D 1 TAB PO SCH (20:18)
[2017-01-23] MEDS: Amitriptyline HCl 25 MG TAB PO SCH (20:18)
[2017-01-24] MEDS: Levothyroxine Sodium 25 MCG TAB PO SCH (05:25)
[2017-01-24] MEDS: Gabapentin 300 MG CAP PO SCH ×3 (09:40→20:33)
[2017-01-24] MEDS: Clopidogrel Bisulfate 75 MG TAB PO SCH (09:40)
[2017-01-24] MEDS: Fenofibrate Nanocrystallized 145 MG TAB PO SCH (09:40)
[2017-01-24] MEDS: Ferrous Sulfate 325 MG TAB PO SCH (09:40)
[2017-01-24] MEDS: Aspirin 81 mg Enteric Coated Tablet PO SCH (09:40)
[2017-01-24] MEDS: Multivit, Therapeutic 1 TAB PO SCH (09:40)
[2017-01-24] MEDS: Calcium Carbonate + Vit D 1 TAB PO SCH (20:33)
[2017-01-24] MEDS: Amitriptyline HCl 25 MG TAB PO SCH (20:33)
[2017-01-24] MEDS: Lorazepam 0.5 MG TAB PO SCH (20:33)
[2017-01-25] MEDS: Levothyroxine Sodium 25 MCG TAB PO SCH (05:31)
[2017-01-25 08:33] VITALS: BP 129/58; TEMP 98.3
[2017-01-25] MEDS: Multivit, Therapeutic 1 TAB PO SCH (09:35)
[2017-01-25] MEDS: Clopidogrel Bisulfate 75 MG TAB PO SCH (09:35)
[2017-01-25] MEDS: Aspirin 81 mg Enteric Coated Tablet PO SCH (09:35)
[2017-01-25] MEDS: Gabapentin 300 MG CAP PO SCH (09:36)
[2017-01-25] MEDS: Fenofibrate Nanocrystallized 145 MG TAB PO SCH (09:36)
[2017-01-25] MEDS: Ferrous Sulfate 325 MG TAB PO SCH (09:36)
--- NOTE | 2017-01-26 06:55 | DIS ---
DATE OF ADMISSION: 12/23/2016 DATE OF DISCHARGE: 01/25/2017 PRIMARY CARE PHYSICIAN: Ernst Fernández M.D. FINAL DIAGNOSES:. 1. Generalized weakness. 2. Urinary tract infection treated with both intravenous and oral antibiotics. 3. Gait instability, improved. 4. Chronic pain syndrome, improved. 5. Chronic anemia. 6. Recurrent falls at home. DISCHARGE DISPOSITION: To home with . DIET: Low salt, low fat. ACTIVITIES: Use rolling walker at all times. Fall precautions. DISCHARGE MEDICATIONS: Wagoner 5/325 one to two tabs q. 8 hours, Elavil 25 at bedtime, Norvasc 5 daily, aspirin 81 daily, calcium/vitamin D 1 tab at bedtime, Plavix 75 daily, TriCor 145 daily, ferrous sulfate 325 daily, Neurontin 300 t.i.d., Synthroid 12.5 daily, Ativan 0.25 at bedtime, multivitamin once a day, alendronate 70. BRIEF HOSPITAL COURSE: Ms. Mcdowell is an 81-year-old female with a medical history of hypertension, depression with anxiety, chronic pain syndrome due to low back pain, hypothyroidism, dyslipidemia, CVA with residual deficits. Patient resides in her home with her , but a couple of days prior to admission she had worsening weakness, decreased oral intake and was brought to the emergency room. Upon further evaluation in the ER, patient was found to have a urinary tract infection and generalized weakness. She was started on IV Levaquin and she completed doses of that during hospitalization. Urine showed no growth and the patient clinically improved over the course of the antibiotic. She was noted to have severe physical debility and patient underwent therapy for strengthening and gait stability. Patient showed marked improvement and barely used her chronic pain medication Wagoner during hospitalization. By day of discharge, patient's gait remained unsteady, but was able to walk about 200 feet using a rolling walker prior to discharge. We will continue outpatient physical therapy in [facility]. Due to risk of fall, she was recommended to continue therapy and patient and agree to this. Patient was discharged back home in a stable condition with her . Discharge vitals, temperature 98.3, pulse 63, respirations 20, blood pressure 129/58, O2 sat 96% on room air. [facility]
== END 2017-01-25 11:20 | disposition home or self-care (01) | DRG 948 ==
LOC: MADMS 12-27 09:30
PROVIDERS: ADMIT Family Medicine; ATTEND Family Medicine
DX: R53.1 Weakness (principal); N39.0 Urinary tract infection, site not specified; D53.9 Nutritional anemia, unspecified; F32.9 Major depressive disorder, single episode, unspecified; E03.9 Hypothyroidism, unspecified; E78.5 Hyperlipidemia, unspecified; G89.4 Chronic pain syndrome; F41.9 Anxiety disorder, unspecified; Z86.73 Personal history of transient ischemic attack (TIA), and cerebral infarction without residual deficits; M19.90 Unspecified osteoarthritis, unspecified site; R26.9 Unspecified abnormalities of gait and mobility; Z66 Do not resuscitate; Z91.81 History of falling
CPT/HCPCS: G8978-GP-CJ; G8978-GP-CK; G8979-GP-CI

== ENCOUNTER 2017-02-13 19:35 | Outpatient (CLI) | payer MEDICARE ==
[2017-02-13 20:15] LABS: Clarity Hazy (Clear); Glucose, Urine (Dipstick) Negative (Negative); Leukocyte Small (Negative); Nitrite Negative (Negative); Protein, Urine (Dipstick) Negative (Neg-Trace)
[2017-02-13 20:16] LABS: Bacteria/HPF 1+ HPF (None Seen); Bilirubin Negative (Negative); Blood, Urine Negative (Negative); RBC/HPF 0-3 HPF (0-3); Squamous Epithelial 0-3 HPF (0-3); Urobilinogen 0.2 mg/dL (0.2-1.0)
== END 2017-02-13 19:36 | disposition home or self-care (01) ==
LOC: MADLABBHPM 19:35
PROVIDERS: ATTEND Family Medicine
DX: R82.90 Unspecified abnormal findings in urine (principal)
CPT/HCPCS: 81001; 87086

== ENCOUNTER 2017-03-25 14:53 | Outpatient (CLI) | payer MEDICARE ==
[2017-03-25 15:14] LABS: #Basophils 0.1 thou/uL (0.0-0.2); #Eosinphils 0.1 thou/uL (0.0-0.7); #Lymphocytes 2.3 thou/uL (1.20-3.40); #Monocytes 0.7 thou/uL (0.11-0.59); %Basophils 0.9 % (0.0-1.0); %Eosinophils 2.1 % (0.0-10.0); %Lymphocytes 36.3 % (21.0-51.0); %Neutrophils 48.6 % (42.0-75.0); Hemoglobin 10.6 g/dL (12.0-16.0); Mean Corpuscular HGB CONC 31.9 g/dL (32.0-36.0); Mean Corpuscular Hemoglobin 28.4 pg (27.0-31.0); Mean Corpuscular Volume 89.1 fl (81.0-99.0); Mean Platelet Volume 9.3 fL (7.4-10.4); Platelet Count 296 thou/uL (130-400); RBC Distribution Width 13.2 % (11.5-14.5); Red Blood Cell (RBC) Count 3.74 mill/uL (4.20-5.40); White Blood Cell (WBC) Count 6.2 thou/uL (4.8-10.8)
[2017-03-25 15:30] LABS: ALT (SGPT) 11 U/L (8-55); AST (SGOT) 24 U/L (5-34); Albumin 3.9 g/dL (3.4-4.8); Alkaline Phosphatase 36 U/L (40-150); Anion Gap 15 mmol/L (10-20); BUN (Urea Nitrogen) 20 mg/dL (9.8-20.1); Bilirubin, Total 0.3 mg/dL (0.2-1.2); Calc. Creatinine Clearance 0 mL/min (70-130); Calcium 8.9 mg/dL (7.8-10.44); Carbon Dioxide 26 mmol/L (23-31); Cardiac Risk 3.9 (Less than 4.5); Chloride 103 mmol/L (98-107); Cholesterol 220 mg/dl (< 200 Desired); Estimated GFR-MDRD 55; Globulin 3.3 g/dL (2.4-3.5); Glucose 146 mg/dL (83-110); HDL Cholesterol 56 mg/dL (>60 Neg Risk); LDL Cholesterol, Calculated 133 mg/dL; Protein, Total 7.2 g/dL (6.0-8.3); Sodium 140 mmol/L (136-145); Triglycerides 155 mg/dL (Less than 150)
[2017-03-25 16:26] LABS: Free T4 (Free Thyroxine) 1.02 ng/dL (0.70-1.48); Thyroid Stimulating Hormone 2.3018 uIU/mL (0.35-4.94); Vitamin D, 25 Hydroxy 29.9 ng/ml (> 30.0)
== END 2017-03-25 14:54 | disposition home or self-care (01) ==
LOC: MADLABBHPM 14:53
PROVIDERS: ATTEND Family Medicine
DX: E78.5 Hyperlipidemia, unspecified (principal); I10 Essential (primary) hypertension; E03.9 Hypothyroidism, unspecified; D50.9 Iron deficiency anemia, unspecified; F41.8 Other specified anxiety disorders; R53.81 Other malaise; G89.4 Chronic pain syndrome
CPT/HCPCS: 36415; 80053; 80061; 82306; 84439; 84443; 85025